=== PATIENT | female | born 1940 | race Caucasian/White ===

== ENCOUNTER → 2018-02-18 10:33 | Outpatient (CLI) | payer MEDICARE, OTHER, SELFPAY ==
--- NOTE | 2018-02-18 10:33 | DT_ITS ---
This patient was seen during an EMR downtime February 11, 2018 - February 18, 2018. This patient may have a combination of paper and electronic documentation or all paper documentation. All documentation is viewable within the e-chart portion of [facility] for each patient visit.
--- NOTE | 2018-02-18 10:42 | BI_ITS ---
MAMMOGRAPHY - BILATERAL SCREENING REASON FOR EXAM: Female, 77 years old. Routine annual screening examination. PERTINENT HISTORY: P/H AGE 54 RT MASTECTOMY TECHNIQUE: Digital unilateral breast samantha (3D mammographic acquisition) in the CC and MLO projections. 2-D mediolateral oblique (MLO) and craniocaudad (CC) views were obtained. CAD: Full Field Digital Mammography with Computer Added Detection was performed. COMPARISON: None. FINDINGS: Breast Composition: The breasts are heterogeneously dense, which may obscure small masses. There are no dominant masses or suspicious calcifications. No other significant abnormalities are identified. BI/UNILAT LT SCRN W/CAD IMPRESSION: Stable bilateral screening mammogram. Yearly follow-up mammogram recommended. (A) ASSESSMENT CATEGORY: BIRADS Category 2: Benign. A letter regarding these results will be sent to the patient by the facility within 30 days. Approximately 10% of breast cancers are not detected by mammography. A normal mammogram should not delay biopsy of a clinically suspicious abnormality. [id number] Electronically Signed: Helen Markham MD at 11:15 EDT Tel , Service support ,
== END ==
PROVIDERS: Visit Provider Nurse Practitioner Women's Health
DX: Z12.31 Encounter for screening mammogram for malignant neoplasm of breast (principal); N85.2 Hypertrophy of uterus; R10.2 Pelvic and perineal pain
CPT/HCPCS: 77061; 77067; G0279

== ENCOUNTER → 2018-02-25 11:29 | Outpatient (CLI) | payer MEDICARE, OTHER, SELFPAY ==
--- NOTE | 2018-02-25 11:34 | US_ITS ---
STUDY: ULTRASOUND TRANSVAGINAL CLINICAL: Female, 77 years old. Enlarged uterus. TECHNIQUE: Transabdominal and transvaginal pelvic ultrasound. COMPARISON: Ultrasound pelvis 02/25/2018. FINDINGS: The uterus measures 6.7 x 3.4 x 2.6 cm. Anteverted position in the midline. There are mild calcifications within the wall of the uterus, likely vascular calcifications. Endometrium is 4 mm in thickness, with unremarkable echotexture. Normal cervix. Right ovary 14 x 9 x 5 mm and left ovary 13 x 11 x 5 mm. Each exhibits normal echotexture, normal vascular flow, with no mass or suspicious cyst. There is no adnexal free fluid. There is no cul-de-sac free fluid. US/Transvaginal Non- IMPRESSION: Appropriate senescent features of the uterus and ovaries. No significant endometrial thickening. No acute intrapelvic process is identified. Electronically Signed: Matias Foster, at 14:43 EDT Tel , Service support ,
--- NOTE | 2018-02-25 11:34 | US_ITS ---
STUDY: ULTRASOUND TRANSVAGINAL CLINICAL: Female, 77 years old. Enlarged uterus. TECHNIQUE: Transabdominal and transvaginal pelvic ultrasound. COMPARISON: Ultrasound pelvis 02/25/2018. FINDINGS: The uterus measures 6.7 x 3.4 x 2.6 cm. Anteverted position in the midline. There are mild calcifications within the wall of the uterus, likely vascular calcifications. Endometrium is 4 mm in thickness, with unremarkable echotexture. Normal cervix. Right ovary 14 x 9 x 5 mm and left ovary 13 x 11 x 5 mm. Each exhibits normal echotexture, normal vascular flow, with no mass or suspicious cyst. There is no adnexal free fluid. There is no cul-de-sac free fluid. US/Pelvic (Non ) IMPRESSION: Appropriate senescent features of the uterus and ovaries. No significant endometrial thickening. No acute intrapelvic process is identified. Electronically Signed: Matias Kristin, at 14:43 EDT Tel , Service support ,
== END ==
PROVIDERS: Visit Provider Nurse Practitioner Women's Health
DX: N85.2 Hypertrophy of uterus (principal)
CPT/HCPCS: 76830; 76856

== ENCOUNTER → 2019-03-05 09:41 | Outpatient (CLI) | payer MEDICARE, OTHER, SELFPAY ==
--- NOTE | 2019-03-05 09:44 | BI_ITS ---
MAMMOGRAPHY - UNILATERAL SCREENING: LEFT BREAST REASON FOR EXAM: Female, 78 years old. Routine annual screening examination (unilateral). PERTINENT HISTORY: History of right mastectomy. TECHNIQUE: TECHNIQUE: Digital examination. Mediolateral oblique (MLO) and craniocaudad (CC) views of both breasts were obtained. CAD: CAD was performed on this study. COMPARISON: February 18, 2018, February 14, 2017 FINDINGS: Breast Composition: The breasts are almost entirely fatty. There are stable benign calcifications. There are no dominant masses or suspicious calcifications. No other significant abnormalities are identified. BI/SCREEN MAMM (CAD) W/SAEID UNI L IMPRESSION: Stable bilateral screening mammogram. ASSESSMENT CATEGORY: BIRADS Category 2: Benign. A letter regarding these results will be sent to the patient by the facility within 30 days. FOLLOW UP RECOMMENDATION: Yearly follow up mammogram recommended. (A) Approximately 10% of breast cancers are not detected by mammography. A normal mammogram should not delay biopsy of a clinically suspicious abnormality. [id number] Electronically Signed: Aydin Weston MD at 11:09 EDT , Service support ,
== END ==
PROVIDERS: Referring Provider Nurse Practitioner Women's Health; Visit Provider Nurse Practitioner Women's Health
DX: Z12.31 Encounter for screening mammogram for malignant neoplasm of breast (principal); Z90.11 Acquired absence of right breast and nipple
CPT/HCPCS: 77061; 77067; G0279

== ENCOUNTER → 2020-03-09 11:30 | Outpatient (CLI) | payer MEDICARE, OTHER, SELFPAY ==
[2019-03-05 10:15] VITALS: BMI 26.3
[2020-03-09 11:00] VITALS: BMI 26.3
--- NOTE | 2020-03-09 11:33 | BI_ITS ---
MAMMOGRAPHY - UNILATERAL SCREENING: RIGHT BREAST REASON FOR EXAM: Female, 79 years old. Routine annual screening examination (unilateral). PERTINENT HISTORY: Personal history of breast cancer. Prior right mastectomy. TECHNIQUE: Digital unilateral breast saeid (3D mammographic acquisition) in the CC and MLO projections. 2-D mediolateral oblique (MLO) and craniocaudad (CC) views of both breasts were obtained. CAD: Full Field Digital Mammography with Computer Added Detection was performed. COMPARISON: Comparison is made with prior study dated March 05, 2019 and February 18, 2018 FINDINGS: Breast Composition: There are scattered areas of fibroglandular density. There are no dominant masses or suspicious calcifications. No other significant abnormalities are identified. There has been no significant change since the prior study. BI/SCREEN MAMM (CAD) W/SAEID UNI R IMPRESSION: Stable unilateral screening mammogram. Yearly follow-up mammogram recommended. (A) ASSESSMENT CATEGORY: BIRADS Category 1: Negative. A letter regarding these results will be sent to the patient by the facility within 30 days. Approximately 10% of breast cancers are not detected by mammography. A normal mammogram should not delay biopsy of a clinically suspicious abnormality. [id number] Electronically Signed: Osito Aldridge, at 13:09 EDT , Service support ,
== END ==
PROVIDERS: Referring Provider Obstetrics & Gynecology; Visit Provider Obstetrics & Gynecology
DX: Z12.31 Encounter for screening mammogram for malignant neoplasm of breast (principal); Z85.3 Personal history of malignant neoplasm of breast; Z90.11 Acquired absence of right breast and nipple
CPT/HCPCS: 77063; 77067

== ENCOUNTER → 2021-03-22 10:16 | Outpatient (CLI) | payer MEDICARE, OTHER, SELFPAY ==
[2020-03-09 11:00] VITALS: BMI 26.3
[2021-03-22 09:52] VITALS: BMI 24.8
--- NOTE | 2021-03-22 10:18 | BI_ITS ---
MAMMOGRAPHY - UNILATERAL SCREENING: LEFT BREAST REASON FOR EXAM: Female, 80 years old. Routine annual screening examination (unilateral). PERTINENT HISTORY: Personal history of breast cancer. Prior right mastectomy. TECHNIQUE: Digital unilateral breast saeid (3D mammographic acquisition) in the CC and MLO projections. 2-D mediolateral oblique (MLO) and craniocaudad (CC) views of both breasts were obtained. CAD: Full Field Digital Mammography with Computer Added Detection was performed. COMPARISON: Comparison is made with prior study dated 03/09/2020 and 03/05/2019. FINDINGS: Breast Composition: There are scattered areas of fibroglandular density. There are no dominant masses or suspicious calcifications. No other significant abnormalities are identified. There has been no significant change since the prior study. BI/SCREEN MAMM (CAD) W/SAEID UNI L IMPRESSION: Stable unilateral screening mammogram. Yearly follow-up mammogram recommended. (A) ASSESSMENT CATEGORY: BIRADS Category 1: Negative. A letter regarding these results will be sent to the patient by the facility within 30 days. Approximately 10% of breast cancers are not detected by mammography. A normal mammogram should not delay biopsy of a clinically suspicious abnormality. [id number] Electronically Signed: Osito Aldridge MD at 11:11 EDT , Service support ,
--- NOTE | 2021-03-22 10:27 | BD_ITS ---
STUDY: DUAL ENERGY X-RAY ABSORPTIOMETRY / DXA REASON FOR EXAM: Female, 80 years old. Postmenopausal TECHNIQUE: Bone Mineral Density (BMD) measurements of lumbar spine and bilateral hips were obtained. COMPARISON: None. FINDINGS: Lumbar Spine (L1-L4): g/cm2 (0.903) / T-score (-1.3) / Z-score (1.3) Findings are suggestive of osteopenia with a low fracture risk. Left Femur Total: g/cm2 (0.685) / T-score (-2.1) / Z-score (-0.1) Left Femoral Neck: g/cm2 (0.571) / T-score (-2.5) / Z-score (-0.2) Right Femur Total: g/cm2 (0.714) / T-score (-1.9) / Z-score (0.1) Right Femoral Neck: g/cm2 (0.662) / T-score (-1.7) / Z-score (0.6) BD/Dexa Bone Density Study IMPRESSION: The patient is considered osteopenic as outlined below according to World Maximilian Organization (WHO) criteria with a high fracture risk. Reference Information: The T-score is the number of standard deviations above or below the standard which is normal for young adults at their peak bone mineral density. The World Health Organization (WHO) interprets the T-scores as follows: Above -1 Normal bone density Between -1 and -2.5 Osteopenia Equal to / or below -2.5 Osteoporosis As a practical clinical guideline, osteopenia may be graded as follows: Mild -1 through -1.5 Moderate -1.6 through -2.0 Severe -2.1 through -2.4 The Z-score is the number of standard deviations above or below age-matched controls. A Z-score of less than -1.5 would be considered abnormal. References: 1. NIH Osteoporosis and Related Bone Diseases www osteo.org 2. International Society for Clinical Densitometry www iscd.org 3. National Osteoporosis Foundation www nof.org Electronically Signed: Osito Aldridge MD at 9:09 EDT , Service support ,
== END ==
PROVIDERS: Referring Provider Obstetrics & Gynecology; Visit Provider Obstetrics & Gynecology
DX: Z12.31 Encounter for screening mammogram for malignant neoplasm of breast (principal); Z85.3 Personal history of malignant neoplasm of breast; Z90.11 Acquired absence of right breast and nipple; Z78.0 Asymptomatic menopausal state
CPT/HCPCS: 77063; 77067; 77080

== ENCOUNTER 2021-03-25 07:52 | Day surgery (SDC) | payer MEDICARE, OTHER, SELFPAY ==
[2021-02-22 10:08] VITALS: BMI 24.8
[2021-03-22 09:52] VITALS: BMI 24.8
[2021-03-25] MEDS: Lactated Ringers 1,000 ML 100 ML IV (08:10)
[2021-03-25 08:26] VITALS: BP 160/73; PULSE 87; RESP 16; TEMP 36.2; O2SAT 96; BMI 25.0
--- NOTE | 2021-03-25 09:20 | COLBX_PTH ---
PATIENT: DANILO SHEPPARD LOC: EN U#:[id number] AGE/SX: 80/F ROOM: RE03/25/[address]: Dr. Wilfredo Stiles MD : 1940 BED: DIS: 03/25/2021 SPEC #: [id number] RECD: 03/25/21 11:37 STATUS: TALIA SHEEHAN #: [id number] MANJIT: 03/25/21 09:[address]: Wilfredo Stiles DEPT: SURGICAL PATHOLOGY RECD BY: Jazmine Martinez Tissues: Sigmoid colon biopsy Procedures: Surgery Specimen Level IV HEADER OPERATION: Colonoscopy (MAC) PRE-OP DIAGNOSIS: Change in bowel habits TISSUE SUBMITTED: Sigmoid colon biopsy MICROSCOPIC DIAGNOSIS Sigmoid colon, biopsy: Focal recent mucosal hemorrhage. No evidence of colitis. See comment. AM:joanna 03/28/2021 COMMENT Clinical correlation is suggested. MICROSCOPIC DESCRIPTION Slides are reviewed. GROSS DESCRIPTION Received in fixative is one container labeled with the patient's name and designated sigmoid colon biopsy. The specimen consists of one irregular fragment of light young soft tissue that measures 0.3 x 0.2 x 0.1 cm. The specimen is totally submitted in one cassette. / SJ:rg 03/25/21 TC:5 CPT: 32020
--- NOTE | 2021-03-25 09:55 | PCM.HP.BLA ---
History and Physical Date of Admission: 03/25/21 Intake Visit Reasons: 5 year f/u for c-scope & change in stool Chief Complaint: Change in stool pattern/C-Scope Vest Front Presser Required: No Is patient in pain?: No Allergies Penicillins Allergy (Mild, Verified 02/22/21 10:10) unknown Medications Mastectomy bra #4 ea 06/14/18 [Rx Confirmed 02/22/21] Right breast prosthesis #1 ea 06/14/18 [Rx Confirmed 02/22/21] cholecalciferol (vitamin D3) 25 mcg (1,000 unit) capsule 25 mcg PO DAILY 03/09/20 [History Confirmed 02/22/21] amlodipine 2.5 mg tablet 2.5 mg PO DAILY 02/22/21 [History Confirmed 02/22/21] [facility] Medical History (Updated 02/22/21 @ 17:[address] Wilfredo Stiles MD) Hemorrhoids History of right breast cancer Hyperlipidemia Hypertension Surgical History History of colonoscopy S/P right mastectomy S/P tonsillectomy Family History Mother Heart disease Father Heart disease Social History Smoking Status: Never smoker alcohol intake: never substance use type: does not use caffeine: No what type of physical activity do you participate in: walking frequency: 3-4 times per week seatbelt use: always do you feel safe at home: Yes additional social history: -Retired HPI HPI HPI: DANILO SHEPPARD, is a 80 F who presents to the office today for surgical consultation regarding a change of bowel habit. Patient apparently has had a couple year history of a suspected urethral carbuncle. On most recent evaluation that discussions been converted to possible prolapse uterus. For the past month she has a change in stool caliber to quite diminutive in size pencil size. She has not had any weight loss. No fever. No bright red blood per rectum or melena. Her most recent colonoscopy was April 14, 2016. I have assisted her with that in previous endoscopy. She is a increased risk with a first-degree relative with colon cancer. Her most recent exam showed internal and external hemorrhoids. A few diverticula in the sigmoid colon. A tortuous sigmoid colon requiring manual compression to allow the scope to advance. Colonoscopy prior to that was August 01, 2010. That was otherwise normal except for a small thrombosed hemorrhoid. She is also had a history of breast cancer. That was actually quite remotely possibly 25 years ago. It was her eldest brother who had colon cancer. The patient has concerns that it could be her uterine prolapse causing the bowel habit change but that does not seem to correlate with markedly decreased stool caliber. ROS General General: Yes breast cancer; No weight change, appetite or fatigue HEENT HEENT: No difficulty swallowing Endo Endocrine: No thyroid disease or diabetes mellitus Skin Skin: No rash Musc Musculoskeletal: No back problems or arthritis Cardio Cardiovascular: Yes high blood pressure; No murmur, pacemaker, heart disease, atrial fibrillation, heart attack, heart stent, palpitations, shortness of breat with exertion or chest pain Psych Psychiatric: Yes anxiety; No depression Resp Respiratory: No shortness of breath, No sleep apnea, No cough, No COPD, No asthma, No emphysema and No wheezing Gastro Gastrointestinal: No abdominal pain, No nausea or vomiting, No diarrhea, No constipation, No blood in stool, No acid reflux, Yes hemorrhoids, No ulcers, No gallbladder problem and No black,tarry stools Leo Hematologic: No blood thinners and No bleeding Neuro Neurologic: Yes system reviewed and no additional complaints, except as documented Exam Const General: cooperative, healthy appearing, comfortable and no acute distress Nutritional Appearance: average body habitus Orientation: alert and awake HENAL Head: normal to inspection Eyes General: appearance normal, both eyes and all related structures Chest Chest palpation & inspection: normal inspection of the chest Resp Effort & Inspection: normal respiratory effort Auscultation: clear to auscultation bilaterally Cardio Rate: regular rate Rhythm: regular rhythm GI Palpation: soft and no hepatosplenomegaly Auscultation: normal bowel sounds Musc Cervical Spine: normal cervical lordosis Neuro Cognition: normal cognition Extrem General: no calf tenderness bilaterally Psych Affect: normal affect COVID (Procedure Consent) Procedure Criteria Procedure Criteria: Yes Elective The surgeon/proceduralist and patient have discussed in detail the risk of exposure to and/or potential harm posed by the COVID-19 virus with having a surgery/procedure at this time versus the risk of delaying the surgery/procedure. It is not possible to know either the risk of delaying the surgery or procedure or chance of getting an infection with perfect accuracy, but a joint decision was made between the patient and the surgeon/proceduralist to proceed at this time with the scheduled surgery/procedure as indicated on the consent form. Assessment and Plan Assessment and Plan (1) Anxiety: Status: Acute (2) Change in bowel habit: Status: Acute Plan - Dr. Wilfredo Stiles MD: I recommend to the patient a colonoscopy with possible biopsy or polypectomy as indicated. As noted her previous examination was of increased difficulty because of her tortuous sigmoid colon. The change of bowel habit and diminished caliber stool might likely add to increased difficulty. I recommend monitored anesthesia care. She has had an opportunity to ask and have questions answered. We will schedule and proceed at her discretion. I appreciate the ongoing opportunity of assisting with her surgical care. Wilfredo Stiles M.D., F.A.C.S. Coding Level of Care Code Off vis,new,level 3 Diagnoses Anxiety F41.9 Change in bowel habit R19.4 I have re-examined the patient. There are no clinical changes since date of exam.
[2021-03-25 10:25] VITALS: BP 117/68; BP 160/73; PULSE 90; RESP 15; TEMP 36.2; O2SAT 100
--- NOTE | 2021-03-25 10:28 | OP.CCLET_ITS ---
03/25/2021 [facility] Re : Colonoscopy procedure for Julia Weinstein [facility] This procedure was performed on Thursday, March 25, 2021. My impressions and recommendations are as follows: Impressions : - Non-thrombosed external hemorrhoids, non-thrombosed internal hemorrhoids and internal hemorrhoids that do not return to the anal canal, thus continuously prolapsed (Grade IV) found on digital rectal exam. - Diverticulosis in the sigmoid colon. - No specimens collected. Recommendations : - Discharge patient to home. - Resume previous diet. - Repeat colonoscopy in 5 years for surveillance. - Return to my office in 1 week. Prolapsing internal rectal tissue and hemorrhoidal tissue left lateral aspect of the anus. I will be recommending surgical resection/hemorrhoidectomy. - Continue present medications. My findings are described in the full procedure note, which is enclosed. If I can be of further assistance, please feel free to contact me at Doctor phone number(s): Work: . Sincerely, Wilfredo Stiles MD 03/25/2021 10:28:05 AM This report has been signed electronically.
--- NOTE | 2021-03-25 10:28 | OP.COLON_ITS ---
Patient Name: Julia Weinstein Procedure Date: 03/25/2021 10:01 AM Date of : 1940 Age: 80 Procedure: Colonoscopy Indications: Rectal bleeding Providers: Wilfredo Stiles MD Medicines: See the Anesthesia note for documentation of the administered medications Patient Profile: Last Colonoscopy: April 2016. Complications: No immediate complications. Procedure: Pre-Anesthesia Assessment: - Prior to the procedure, a History and Physical was performed, and patient medications and allergies were reviewed. The patient's tolerance of previous anesthesia was also reviewed. The risks and benefits of the procedure and the sedation options and risks were discussed with the patient. All questions were answered, and informed consent was obtained. Prior Anticoagulants: The patient has taken no previous anticoagulant or antiplatelet agents. ASA Grade Assessment: II - A patient with mild systemic disease. After reviewing the risks and benefits, the patient was deemed in satisfactory condition to undergo the procedure. After I obtained informed consent, the scope was passed under direct vision. Throughout the procedure, the patient's blood pressure, pulse, and oxygen saturations were monitored continuously. The adult colonoscope was introduced through the anus and advanced to the cecum, identified by appendiceal orifice and ileocecal valve. The colonoscopy was performed without difficulty. The patient tolerated the procedure well. The quality of the bowel preparation was good. The ileocecal valve and the appendiceal orifice were photographed. Scope In: 10:09:16 AM Scope Withdrawal Time 0 hours 6 minutes 5 seconds Scope Out: 10:19:21 AM Total Procedure Duration Time 0 hours 10 minutes 5 seconds Findings: The digital rectal exam findings include non-thrombosed external hemorrhoids, non-thrombosed internal hemorrhoids and internal hemorrhoids that do not return to the anal canal, thus continuously prolapsed (Grade IV). Scattered diverticula were found in the sigmoid colon. Impression: - Non-thrombosed external hemorrhoids, non-thrombosed internal hemorrhoids and internal hemorrhoids that do not return to the anal canal, thus continuously prolapsed (Grade IV) found on digital rectal exam. - Diverticulosis in the sigmoid colon. - No specimens collected. Recommendation: - Discharge patient to home. - Resume previous diet. - Repeat colonoscopy in 5 years for surveillance. - Return to my office in 1 week. Prolapsing internal rectal tissue and hemorrhoidal tissue left lateral aspect of the anus. I will be recommending surgical resection/hemorrhoidectomy. - Continue present medications. Procedure Code(s): --- Professional --- 91899, Colonoscopy, flexible; diagnostic, including collection of specimen(s) by brushing or washing, when performed (separate procedure) Diagnosis Code(s): --- Professional --- K64.3, Fourth degree hemorrhoids K64.4, Residual hemorrhoidal skin tags K62.5, Hemorrhage of anus and rectum K57.30, Diverticulosis of large intestine without perforation or abscess without bleeding CPT copyright 2017 [employer]. All rights reserved. The codes documented in this report are preliminary and upon seismograph computer review may be revised to meet current compliance requirements. Wilfredo Stiles MD 03/25/2021 10:28:05 AM This report has been signed electronically. Number of Addenda: 0 Note Initiated On: 03/25/2021 10:01 AM
[2021-03-25 10:30] VITALS: BP 136/73; BP 160/73; PULSE 82; RESP 16; O2SAT 99
[2021-03-25 10:35] VITALS: BP 144/73; BP 160/73; PULSE 79; RESP 18; O2SAT 100
[2021-03-25 10:40] VITALS: BP 155/69; BP 160/73; PULSE 71; RESP 14; TEMP 36; O2SAT 100
[2021-03-25 11:37] VITALS: BP 160/73
== END 2021-03-25 11:38 ==
LOC: EN 07:53 → AC 07:55
PROVIDERS: Visit Provider Surgery
PROC: 0DJD8ZZ Inspection of Lower Intestinal Tract, Via Natural or Artificial Opening Endoscopic (ICD-10-PCS; CPT 45378; principal; 2021-03-25 09:15)
DX: K57.31 Diverticulosis of large intestine without perforation or abscess with bleeding (principal); K64.3 Fourth degree hemorrhoids; K64.4 Residual hemorrhoidal skin tags; I10 Essential (primary) hypertension; E78.5 Hyperlipidemia, unspecified; F41.9 Anxiety disorder, unspecified; Z78.0 Asymptomatic menopausal state; Z85.3 Personal history of malignant neoplasm of breast; Z80.0 Family history of malignant neoplasm of digestive organs; Z79.899 Other long term (current) drug therapy
CPT/HCPCS: 45378; 88305; J7120; J2405

== ENCOUNTER → 2022-03-29 | Outpatient (CLI) | payer MEDICARE, OTHER, SELFPAY ==
--- NOTE | 2022-03-29 10:05 | BI_ITS ---
MAMMOGRAPHY - BILATERAL SCREENING REASON FOR EXAM: Female, 81 years old. Routine annual screening examination. PERTINENT HISTORY: Personal history of breast cancer. Prior right mastectomy. TECHNIQUE: Digital bilateral breast saeid (3D mammographic acquisition) in the CC and MLO projections. 2-D mediolateral oblique (MLO) and craniocaudad (CC) views of both breasts were obtained. CAD: Full Field Digital Mammography with Computer Added Detection was performed. COMPARISON: Comparison is made with prior examination 03/22/2021 and 03/09/2020. FINDINGS: Breast Composition: There are scattered areas of fibroglandular density. There are no dominant masses or suspicious calcifications. No other significant abnormalities are identified. There has been no significant change since the prior study. BI/SCREEN MAMM (CAD) W/SAEID UNI L IMPRESSION: Stable bilateral screening mammogram. Yearly follow-up mammogram recommended. (A) ASSESSMENT CATEGORY: BIRADS Category 1: Negative. A letter regarding these results will be sent to the patient by the facility within 30 days. Approximately 10% of breast cancers are not detected by mammography. A normal mammogram should not delay biopsy of a clinically suspicious abnormality. [id number] Electronically Signed: Osito Aldridge MD at 11:00 EDT ,
== END | disposition home or self-care (01) ==
LOC: OPBI 10:03
PROVIDERS: Visit Provider Nurse Practitioner Women's Health
DX: Z12.31 Encounter for screening mammogram for malignant neoplasm of breast (principal); Z90.11 Acquired absence of right breast and nipple
CPT/HCPCS: 77063; 77067

== ENCOUNTER → 2023-05-18 | Outpatient (CLI) | payer MEDICARE, OTHER, SELFPAY ==
--- NOTE | 2023-05-18 09:53 | BI_ITS ---
MAMMOGRAPHY - UNILATERAL SCREENING: LEFT BREAST REASON FOR EXAM: Female, 82 years old. Routine annual screening examination (unilateral). PERTINENT HISTORY: Personal history of breast cancer. Prior right mastectomy. TECHNIQUE: Digital unilateral breast saeid (3D mammographic acquisition) in the CC and MLO projections. 2-D mediolateral oblique (MLO) and craniocaudad (CC) views of both breasts were obtained. CAD: Full Field Digital Mammography with Computer Added Detection was performed. COMPARISON: Comparison is made with prior study dated March 29, 2022 and March 22, 2021. FINDINGS: Breast Composition: There are scattered areas of fibroglandular density. There are no dominant masses or suspicious calcifications. No other significant abnormalities are identified. There has been no significant change since the prior study. BI/SCREEN MAMM (CAD) W/SAEID UNI L IMPRESSION: Stable unilateral screening mammogram. Yearly follow-up mammogram recommended. (A) ASSESSMENT CATEGORY: BIRADS Category 1: Negative. A letter regarding these results will be sent to the patient by the facility within 30 days. Approximately 10% of breast cancers are not detected by mammography. A normal mammogram should not delay biopsy of a clinically suspicious abnormality. [id number] Electronically Signed: Osito Aldridge MD at 12:29 EDT ,
== END | disposition home or self-care (01) ==
LOC: OPBI 09:50
PROVIDERS: Referring Provider Nurse Practitioner Women's Health; Visit Provider Nurse Practitioner Women's Health
DX: Z12.31 Encounter for screening mammogram for malignant neoplasm of breast (principal); Z85.3 Personal history of malignant neoplasm of breast; Z90.11 Acquired absence of right breast and nipple
CPT/HCPCS: 77063; 77067